=== PATIENT | female | born 1975 | race Caucasian/White ===

== ENCOUNTER 2017-05-15 22:25 | Emergency (ER) | payer SELFPAY ==
[~2017-05-15] VITALS: Ht 157.5 cm; Wt 68.0 kg
[2017-05-16] MEDS ORDERED: TETANUS, DIPHTHERIA, PERTUSSIS VAC/PF 0.5ML (>7YR OLD) IM ONE (03:15)
[2017-05-16] MEDS ORDERED: BACITRACIN ZINC OINT UDPKT TOP ONE (03:15)
[2017-05-16 05:59] VITALS: BP 115/69
== END 2017-05-16 06:03 | disposition home or self-care (01) ==
LOC: ER 22:25
DX: L02.31 Cutaneous abscess of buttock (principal)
CPT/HCPCS: 10060; 90471; 90715; 99283; X7700; Z7610